=== PATIENT | female | born 1930 | race Caucasian/White ===

== ENCOUNTER 2018-09-17 22:29 | Observation (INO) | payer MEDICARE, OTHER ==
[~2018-09-17] VITALS: Ht 157.5 cm; Wt 62.0 kg
[2018-09-17 22:32] VITALS: Ht 157.5 cm; Wt 62.0 kg
[2018-09-17] MEDS ORDERED: ONDANSETRON 4 MG INJ IV STA (22:34)
[2018-09-17] MEDS ORDERED: morphine 4 MG/ML VIAL IV STA (22:34)
[2018-09-18] VITALS (10 sets, daily range): BP systolic 114–140; BP diastolic 61–68; PULSE 84–111; RESP 18–20
[2018-09-18] MEDS ORDERED: hydrALAzine 20 MG INJ IV ONE
[2018-09-18] MEDS ORDERED: LORAZEPAM 2 MG INJ ONE (00:56)
[2018-09-18] MEDS ORDERED: ONDANSETRON 4 MG INJ IV STA (01:16)
[2018-09-18] MEDS ORDERED: LORAZEPAM 2 MG INJ IV ONE (01:30)
[2018-09-18] MEDS ORDERED: OMEP20CA16 PO (03:11)
[2018-09-18] MEDS ORDERED: LEVO100T8 PO (03:11)
--- NOTE | 2018-09-18 03:24 | ERD ---
ER Documentation Chief Complaint Chief Complaint [id number] from home, epigastric pain,nausea,hx diabetes,HTN HPI This is a very pleasant 88-year-old female comes complains of epigastric abdominal pain and radiating up to her chest for the past 4 hours. Mild associated nausea. No fevers or chills. No other current complaints. Patient has history of diabetes and hypertension. Blood pressures were severely elevated. Patient states compliant with medications but blood pressures remain elevated throughout the course of the day. Chest pain is mild to moderate in intensity with no exacerbating alleviating factors. No other current issues. ROS All systems reviewed and are negative except as per history of present illness. Medications Home Meds Reported Medications Omeprazole* (Omeprazole*) 20 Mg Capsule.dr, 20 MG PO QAM, #30 CAP 09/18/18 Levothyroxine Sodium* (Levothyroxine Sodium*) 100 Mcg Tablet, 100 MCG PO BEFORE BREAKFAST, #30 TAB 09/18/18 Allergies Allergies: Coded Allergies: No Known Allergy (Unverified , 09/17/18) PMhx/Soc Medical and Surgical Hx: pt denies Surgical Hx Hx Alcohol Use: No Hx Substance Use: No Hx Tobacco Use: No Smoking Status: Never smoker Physical Exam Vitals Vital Signs Date Temp Pulse Resp B/P (MAP) Pulse Ox O2 O2 Flow FiO2 Time Delivery Rate 09/18/18 101 16 130/54 94 Room Air 01:30 (79) 09/18/18 99 22 146/73 100 Room Air 01:00 (97) 09/18/18 97.5 90 23 146/63 100 Room Air 00:35 (90) 09/17/18 78 14 169/77 98 Room Air 23:57 (107) 09/17/18 77 15 189/89 94 Room Air 23:42 (122) 09/17/18 79 14 211/90 98 Room Air 23:23 (130) 09/17/18 97.6 87 18 237/110 99 22:32 (152) Physical Exam Const: No acute distress Head: Atraumatic Eyes: Normal Conjunctiva ENT: Normal External Ears, Nose and Mouth. Neck: Full range of motion. No meningismus. Resp: Clear to auscultation bilaterally Cardio: Regular rate and rhythm, no murmurs Abd: Soft, non tender, non distended. Normal bowel sounds Skin: No petechiae or rashes Back: No midline or flank tenderness Ext: No cyanosis, or edema Neur: Awake and alert Psych: Normal Mood and Affect Result Diagram: 09/17/18224209/17/182242 Results 24 hrs Laboratory Tests Test 09/17/18 22:43 09/17/18 22:47 09/18/18 00:48 White Blood Count 9.7 10^3/ul Red Blood Count 4.12 10^6/ul Hemoglobin 11.7 g/dl Hematocrit 36.5 % Mean Corpuscular Volume 88.6 fl Mean Corpuscular Hemoglobin 28.4 pg Mean Corpuscular Hemoglobin Concent 32.1 g/dl Red Cell Distribution Width 13.6 % Platelet Count 295 10^3/UL Mean Platelet Volume 9.8 fl Immature Granulocytes % 0.500 % Neutrophils % 85.1 % Lymphocytes % 10.1 % Monocytes % 3.7 % Eosinophils % 0.3 % Basophils % 0.3 % Nucleated Red Blood Cells % 0.0 /100WBC Immature Granulocytes # 0.050 10^3/ul Neutrophils # 8.2 10^3/ul Lymphocytes # 1.0 10^3/ul Monocytes # 0.4 10^3/ul Eosinophils # 0.0 10^3/ul Basophils # 0.0 10^3/ul Nucleated Red Blood Cells # 0.0 10^3/ul Urine Color COLORLESS Urine Clarity CLEAR Urine pH 7.0 Urine Specific [place] 1.006 Urine Ketones NEGATIVE mg/dL Urine Nitrite NEGATIVE mg/dL Urine Bilirubin NEGATIVE mg/dL Urine Urobilinogen NEGATIVE mg/dL Urine Leukocyte Esterase NEGATIVE Asad/ul Urine Microscopic RBC 1 /HPF Urine Microscopic WBC 1 /HPF Urine Hemoglobin NEGATIVE mg/dL Urine Glucose NEGATIVE mg/dL Urine Total Protein 1+ mg/dl Sodium Level 140 mmol/L Potassium Level 3.6 mmol/L Chloride Level 101 mmol/L Carbon Dioxide Level 29 mmol/L Anion Gap 10 Blood Urea Nitrogen 26 mg/dl Creatinine 1.20 mg/dl Est Glomerular Filtrat Rate mL/min mL/min Glucose Level 73 mg/dl Calcium Level 9.6 mg/dl Total Bilirubin 0.2 mg/dl Direct Bilirubin 0.00 mg/dl Indirect Bilirubin 0.2 mg/dl Aspartate Amino Transf (AST/SGOT) 32 IU/L Alanine Aminotransferase (ALT/SGPT) 21 IU/L Alkaline Phosphatase 75 IU/L Troponin I < 0.012 ng/ml Total Protein 8.1 g/dl Albumin 4.7 g/dl Globulin 3.40 g/dl Albumin/Globulin Ratio 1.38 Lipase 153 U/L Bedside Glucose 81 mg/dL 84 mg/dL Current Medications Medications Dose Sig/Venkat Start Time Status Last (Trade) Ordered Route PRN Stop Time Admin Dose Reason Admin Morphine 4 mg ONCE STAT 09/17/18 DC Sulfate IV 22:34 09/17/18 (morphine) 22:36 Ondansetron 4 mg ONCE STAT 09/17/18 DC 09/17/18 HCl (Zofran IV 22:34 09/17/18 23:23 Inj) 22:36 Hydralazine 20 mg ONCE ONCE 09/18/18 DC 09/17/18 HCl IV 00:00 09/18/18 23:58 (Apresoline) 00:01 Lorazepam 2 mg STK-MED 09/18/18 DC (Ativan) ONCE .ROUTE 00:56 09/18/18 00:57 Lorazepam 1 mg ONCE ONCE 09/18/18 DC 09/18/18 (Ativan) IV 01:30 09/18/18 01:00 01:31 Ondansetron 4 mg ONCE STAT 09/18/18 DC 09/18/18 HCl (Zofran IV 01:16 09/18/18 01:05 Inj) 01:17 Procedures/MDM EKG: Rate/Rhythm: [Normal Sinus Rhythm] QRS, ST, T-waves: [No changes consistent w/ acute ischemia] Impression: [No evidence of ischemia or arrhythmia] Chest X-ray 1V Interpreted by me: Soft Tissue: No acute a bnormalities Bones: No acute abnormalities Mediastinum/Cardiac Silhouette/Lungs: [No acute abnormalities] Medical decision making: Patient's symptoms are concerning for cardiac cause will require inpatient workup and continuous monitoring. Further w/u for ischemia, arrhythmia, PE or dissection will be deferred to the inpatient team. Accepting Care Team: Current data and ongoing care discussed. Time: 1 AM Primary Provider: Hospitalist Consulting: Deferred to inpatient team Outstanding Data: none Departure Diagnosis: Primary Impression: Epigastric pain Additional Impression: Chest pain Chest pain type: unspecified Qualified Codes: R07.9 - Chest pain, unspecified Condition: Serious HUDSON SELLERS September 18, 2018 03:24
[2018-09-18] MEDS ORDERED: ONDANSETRON 4 MG INJ IV PRN ×2 (05:00→06:30)
[2018-09-18] MEDS ORDERED: ALBUTEROL/IPRATROPIUM (NEB) 3 ML AMP HHN PRN (06:30)
[2018-09-18] MEDS ORDERED: NACL 0.9% 3 ML SYG IV SCH (06:30)
[2018-09-18] MEDS ORDERED: SOD CHLORIDE 0.9% 1,000 ML IV SCH (06:30)
[2018-09-18] MEDS ORDERED: ACETAMINOPHEN 325 MG TAB PO PRN (06:30)
[2018-09-18] MEDS: PANTOPRAZOLE (EC) 40 MG TAB PO SCH (08:30)
[2018-09-18] MEDS: LEVOTHYROXINE 100 MCG TAB PO SCH (08:30)
--- NOTE | 2018-09-18 08:44 | HP ---
Date/Time of Note Date/Time of Note DATE: 09/18/18 TIME: 08:38 Assessment/Plan VTE Prophylaxis Risk score (from Ns)>0 risk: 4 SCD applied (from Ns): Yes Pharmacological prophylaxis: heparin Lines/Catheters IV [facility]from [facility] Saline Lock Urinary Cath still in place: No Assessment/Plan Assessment/Plan 1. Abdominal pain with vomiting and diarrhea: Likely gastroenteritis -Bowel rest, with IV fluid -Continue PPI 2. Hypertensive encephalopathy, resolved. Patient reported forgetfulness x1 day. 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 Currently mentation stable. Will consider MRI per clinical course 3. Hypertensive emergency: Currently BP is in acceptable range 4. Type I diabetes: Continue insulin 5. Hypothyroidism: Continue Synthroid Result Diagram: 09/17/183 09/17/18 2243 Results 24hrs Laboratory Tests Test 09/17/18 22:43 09/17/18 22:47 09/18/18 00:48 White Blood Count 9.7 Red Blood Count 4.12 L Hemoglobin 11.7 L Hematocrit 36.5 L Mean Corpuscular Volume 88.6 Mean Corpuscular Hemoglobin 28.4 L Mean Corpuscular Hemoglobin Concent 32.1 Red Cell Distribution Width 13.6 Platelet Count 295 Mean Platelet Volume 9.8 Immature Granulocytes % 0.500 H Neutrophils % 85.1 H Lymphocytes % 10.1 L Monocytes % 3.7 Eosinophils % 0.3 Basophils % 0.3 Nucleated Red Blood Cells % 0.0 Immature Granulocytes # 0.050 H Neutrophils # 8.2 H Lymphocytes # 1.0 Monocytes # 0.4 Eosinophils # 0.0 Basophils # 0.0 Nucleated Red Blood Cells # 0.0 Urine Color COLORLESS Urine Clarity CLEAR Urine pH 7.0 Urine Specific [place] 1.006 Urine Ketones NEGATIVE Urine Nitrite NEGATIVE Urine Bilirubin NEGATIVE Urine Urobilinogen NEGATIVE Urine Leukocyte Esterase NEGATIVE Urine Microscopic RBC 1 Urine Microscopic WBC 1 Urine Hemoglobin NEGATIVE Urine Glucose NEGATIVE Urine Total Protein 1+ H Sodium Level 140 Potassium Level 3.6 Chloride Level 101 Carbon Dioxide Level 29 Anion Gap 10 Blood Urea Nitrogen 26 H Creatinine 1.20 H Est Glomerular Filtrat Rate mL/min Glucose Level 73 Calcium Level 9.6 Total Bilirubin 0.2 Direct Bilirubin 0.00 Indirect Bilirubin 0.2 Aspartate Amino Transf (AST/SGOT) 32 Alanine Aminotransferase (ALT/SGPT) 21 Alkaline Phosphatase 75 Troponin I < 0.012 Total Protein 8.1 Albumin 4.7 Globulin 3.40 H Albumin/Globulin Ratio 1.38 Lipase 153 Bedside Glucose 81 84 HPI/ROS Admit Date/Time Admit Date/Time September 18, 2018 at 01:58 Hx of Present Illness This is an 88-year-old female with a history of hypertension, diabetes, hypothyroidism who presented to ER complaining of abdominal pain associated with multiple nonbloody nonbilious vomiting, forgetfulness x1 day. On further questioning, she thinks the abdominal pain radiates to her chest area. Also reported watery diarrhea, nonbloody. When presented to the ER, vitals were stable. 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 CT abdomen/pelvis shows the following -Diverticulosis, most prominent in the sigmoid colon. No evidence of acute diverticulitis. -Mild stool burden in the ascending colon and cecum. No small bowel obst ruction. -Mild distension of the urinary bladder. No hydronephrosis or urolithiasis identified. -Small hiatal hernia. -Left adrenal nodule, measuring up to 2.1 cm, indeterminate. Recommend dedicate d adrenal CT or MRI to further evaluate. . PMH/Family/Social Past Medical History Medical History: other (See HPI) Medications Current Medications Ondansetron HCl (Zofran Inj) 4 mg Q6H PRN IV NAUSEA AND/OR VOMITING; Start 09/18/18 at 05:00 IV Flush (NS 3 ml) 3 ml PER PROTOCOL IV ; Start 09/18/18 at 06:30 Ondansetron HCl (Zofran Inj) 4 mg Q6H PRN IV NAUSEA/VOMITING; Start 09/18/18 at 06:30 Acetaminophen (Tylenol Tab) 650 mg Q6H PRN PO .PAIN 1-3 OR TEMP; Start 09/18/18 at 06:30 Albuterol/ Ipratropium (Duoneb) 3 ml Q2H RESP THERAPY PRN HHN SHORTNESS OF BREATH; Start 09/18/18 at 06:30 Levothyroxine Sodium (Synthroid) 100 mcg BEFORE BREAKFAST PO Last administered on 09/18/18at 08:30; Admin Dose 100 MCG; Start 09/18/18 at 07:00 Pantoprazole (Protonix Tab) 40 mg DAILY@06 PO Last administered on 09/18/18at 08:30; Admin Dose 40 MG; Start 09/18/18 at 06:00 Sodium Chloride 1,000 ml @ 75 mls/hr [id number] IV Last administered on 09/18/18at 08:30; Admin Dose 75 MLS/HR; Start 09/18/18 at 06:30; Stop 09/19/18 at 11:00 Coded Allergies: No Known Allergy (Unverified , 09/17/18) Past Surgical History Past Surgical Hx: other (See HPI) Family History Significant Family History: no pertinent family hx Social History Alcohol Use: none Smoking Status: Never smoker Drug Use: none Exam/Review of Systems Vital Signs Vitals Vital Signs Date Temp Pulse Resp B/P (MAP) Pulse Ox O2 O2 Flow FiO2 Time Delivery Rate 09/18/18 100 08:32 09/18/18 98.7 20 138/68 97 Room Air 07:18 (91) Intake and Output 09/17/18 09/17/18 09/18/18 1515:00 23:00 07:00 IntakeIntake Total 0 ml OutputOutput Total 0 ml BalanceBalance 0 ml Exam Constitutional: other (No acute distress) Head: normocephalic, atraumatic Eyes: EOMI, PERRL Respiratory: clear to auscultation, normal air movement Cardiovascular: other (Tachycardic regular rhythm) Gastrointestinal: soft, other (Slight tenderness in the epigastric area. No guarding. No rebound tenderness) Extremities: normal pulses Neurological: nl mental status, nl speech, nl strength HUDSON OLEA MD September 18, 2018 08:44
[2018-09-18] MEDS ORDERED: GLUCAGON 1 MG INJ IM PRN (09:00)
[2018-09-18] MEDS ORDERED: GLUCOSE GEL 15 GRAM TUBE PO PRN ×2 (09:00)
[2018-09-18] MEDS ORDERED: DEXTROSE 50% 50 ML SYRINGE IV PRN ×2 (09:00)
[2018-09-18] MEDS ORDERED: GLUCOSE GEL 15 GRAM TUBE BUCCAL PRN (09:00)
[2018-09-18] MEDS: INSULIN ASPART [NOVOLOG] 3 ML PEN SC SCH ×3 (11:37→20:54)
--- NOTE | 2018-09-18 14:40 | PN ---
Date/Time of Note Date/Time of Note DATE: 09/18/18 TIME: 14:27 Assessment/Plan VTE Prophylaxis Risk score (from Ns)>0 risk: 4 SCD applied (from Ns): Yes Pharmacological prophylaxis: heparin Lines/Catheters IV Catheter Type (from Nrs): Saline Lock Urinary Cath still in place: No Assessment/Plan Assessment/Plan 1. Hypertensive emergency, improved, lisinopril 2. Abdominal pain and vomiting, improved, on protonix 3. Dehydration from vomiting, IVF 4. Type I diabetes: metformin, ISS, HbA1c 5. Hypothyroidism: Continue Synthroid 6. DVT prophylaxis: heparin Result Diagram: 09/17/18224209/17/183 Results 24hrs Laboratory Tests Test 09/17/18 22:43 09/17/18 22:47 09/18/18 00:48 09/18/18 11:34 White Blood Count 9.7 Red Blood Count 4.12 L Hemoglobin 11.7 L Hematocrit 36.5 L Mean Corpuscular Volume 88.6 Mean Corpuscular 28.4 L Hemoglobin Mean Corpuscular 32.1 Hemoglobin Concent Red Cell Distribution 13.6 Width Platelet Count 295 Mean Platelet Volume 9.8 Immature Granulocytes % 0.500 H Neutrophils % 85.1 H Lymphocytes % 10.1 L Monocytes % 3.7 Eosinophils % 0.3 Basophils % 0.3 Nucleated Red Blood 0.0 Cells % Immature Granulocytes # 0.050 H Neutrophils # 8.2 H Lymphocytes # 1.0 Monocytes # 0.4 Eosinophils # 0.0 Basophils # 0.0 Nucleated Red Blood 0.0 Cells # Urine Color COLORLESS Urine Clarity CLEAR Urine pH 7.0 Urine Specific [place] 1.006 Urine Ketones NEGATIVE Urine Nitrite NEGATIVE Urine Bilirubin NEGATIVE Urine Urobilinogen NEGATIVE Urine Leukocyte Esterase NEGATIVE Urine Microscopic RBC 1 Urine Microscopic WBC 1 Urine Hemoglobin NEGATIVE Urine Glucose NEGATIVE Urine Total Protein 1+ H Sodium Level 140 Potassium Level 3.6 Chloride Level 101 Carbon Dioxide Level 29 Anion Gap 10 Blood Urea Nitrogen 26 H Creatinine 1.20 H Est Glomerular Filtrat Rate mL/min Glucose Level 73 Calcium Level 9.6 Total Bilirubin 0.2 Direct Bilirubin 0.00 Indirect Bilirubin 0.2 Aspartate Amino 32 Transf (AST/SGOT) Alanine 21 Aminotransferase (ALT/SG PT) Alkaline Phosphatase 75 Troponin I < 0.012 Total Protein 8.1 Albumin 4.7 Globulin 3.40 H Albumin/Globulin Ratio 1.38 Lipase 153 Bedside Glucose 81 84 338 H Subjective 24 Hr Interval Summary Free Text/Dictation no nausea or vomiting, no abdominal pain Exam/Review of Systems Exam Vitals Vital Signs Date Temp Pulse Resp B/P (MAP) Pulse Ox O2 O2 Flow FiO2 Time Delivery Rate 09/18/18 97 12:53 09/18/18 99.3 20 140/66 97 Room Air 10:57 (90) Intake and Output 09/17/18 09/17/18 09/18/18 1515:00 23:00 07:00 IntakeIntake Total 0 ml OutputOutput Total 0 ml BalanceBalance 0 ml Constitutional: alert, oriented Psych: no complaints, nl mood/affect Head: normocephalic, atraumatic Eyes: nl conjunctiva, EOMI, nl lids, PERRL ENMT: nl external ears & nose, nl lips & teeth, nl nasal mucosa & septum Neck: supple, non-tender Respiratory: clear to auscultation, normal air movement; No congested cough, No crackles/rales, No diminished breath sounds, No intercostal retraction, No labored breathing, No respirations, No tactile fremitus, No wheezing, No other Cardiovascular: regular rate and rhythm, nl pulses; No bruits, No diastolic murmur, No edema, No gallop, No irregular rhythm, No jugular venous distention (JVD), No murmurs/extra sounds, No rub, No systolic murmur, No S3, No S4, No other Gastrointestinal: soft, nl liver, spleen, other (epigastric tenderness) Musculoskeletal: nl extremities to inspection Extremities: normal pulses; No calf tenderness, No cyanosis, No clubbing, No edema, No pitting pedal edema, No palpable cord, No tenderness, No other Neurological: COOK CANDY II-XII intact, nl mental status, nl speech, nl strength Results Results 24hrs Laboratory Tests Test 09/17/18 22:43 09/17/18 22:47 09/18/18 00:48 09/18/18 11:34 White Blood Count 9.7 Red Blood Count 4.12 L Hemoglobin 11.7 L Hematocrit 36.5 L Mean Corpuscular Volume 88.6 Mean Corpuscular 28.4 L Hemoglobin Mean Corpuscular 32.1 Hemoglobin Concent Red Cell Distribution 13.6 Width Platelet Count 295 Mean Platelet Volume 9.8 Immature Granulocytes % 0.500 H Neutrophils % 85.1 H Lymphocytes % 10.1 L Monocytes % 3.7 Eosinophils % 0.3 Basophils % 0.3 Nucleated Red Blood 0.0 Cells % Immature Granulocytes # 0.050 H Neutrophils # 8.2 H Lymphocytes # 1.0 Monocytes # 0.4 Eosinophils # 0.0 Basophils # 0.0 Nucleated Red Blood 0.0 Cells # Urine Color COLORLESS Urine Clarity CLEAR Urine pH 7.0 Urine Specific [place] 1.006 Urine Ketones NEGATIVE Urine Nitrite NEGATIVE Urine Bilirubin NEGATIVE Urine Urobilinogen NEGATIVE Urine Leukocyte Esterase NEGATIVE Urine Microscopic RBC 1 Urine Microscopic WBC 1 Urine Hemoglobin NEGATIVE Urine Glucose NEGATIVE Urine Total Protein 1+ H Sodium Level 140 Potassium Level 3.6 Chloride Level 101 Carbon Dioxide Level 29 Anion Gap 10 Blood Urea Nitrogen 26 H Creatinine 1.20 H Est Glomerular Filtrat Rate mL/min Glucose Level 73 Calcium Level 9.6 Total Bilirubin 0.2 Direct Bilirubin 0.00 Indirect Bilirubin 0.2 Aspartate Amino 32 Transf (AST/SGOT) Alanine 21 Aminotransferase (ALT/SG PT) Alkaline Phosphatase 75 Troponin I < 0.012 Total Protein 8.1 Albumin 4.7 Globulin 3.40 H Albumin/Globulin Ratio 1.38 Lipase 153 Bedside Glucose 81 84 338 H Medications Medication Current Medications Ondansetron HCl (Zofran Inj) 4 mg Q6H PRN IV NAUSEA AND/OR VOMITING; Start 09/18/18 at 05:00 IV Flush (NS 3 ml) 3 ml PER PROTOCOL IV ; Start 09/18/18 at 06:30 Ondansetron HCl (Zofran Inj) 4 mg Q6H PRN IV NAUSEA/VOMITING; Start 09/18/18 at 06:30 Acetaminophen (Tylenol Tab) 650 mg Q6H PRN PO .PAIN 1-3 OR TEMP; Start 09/18/18 at 06:30 Albuterol/ Ipratropium (Duoneb) 3 ml Q2H RESP THERAPY PRN HHN SHORTNESS OF B REATH; Start 09/18/18 at 06:30 Levothyroxine Sodium (Synthroid) 100 mcg BEFORE BREAKFAST PO Last administered on 09/18/18at 08:30; Admin Dose 100 MCG; Start 09/18/18 at 07:00 Pantoprazole (Protonix Tab) 40 mg DAILY@06 PO Last administered on 09/18/18at 08:30; Admin Dose 40 MG; Start 09/18/18 at 06:00 Sodium Chloride 1,000 ml @ 75 mls/hr [id number] IV Last administered on 09/18/18at 08:30; Admin Dose 75 MLS/HR; Start 09/18/18 at 06:30; Stop 09/19/18 at 11:00 Diagnostic Test (Pha) (Accu-Chek) 1 ea 02 XX ; Start 09/19/18 at 02:00 Insulin Aspart (Novolog Insulin Pen) NOVOLOG *MILD* ALGORITHM WITH MEALS BED TIME SC Last administered on 09/18/18at 11:37; Admin Dose 5 UNIT; Start 09/18/18 at 11:50 Miscellaneous Information 1 ea NOTE XX ; Start 09/18/18 at 09:00 Glucose (Glutose) 15 gm Q15M PRN PO DECREASED GLUCOSE; Start 09/18/18 at 09:00 Glucose (Glutose) 22.5 gm Q15M PRN PO DECREASED GLUCOSE; Start 09/18/18 at 09:00 Dextrose (D50w Syringe) 25 ml Q15M PRN IV DECREASED GLUCOSE; Start 09/18/18 at 09:00 Dextrose (D50w Syringe) 50 ml Q15M PRN IV DECREASED GLUCOSE; Start 09/18/18 at 09:00 Glucagon (Glucagen) 1 mg Q15M PRN IM DECREASED GLUCOSE; Start 09/18/18 at 09:00 Glucose (Glutose) 15 gm Q15M PRN BUCCAL DECREASED GLUCOSE; Start 09/18/18 at 09:00 OSMAR MOREAU MD September 18, 2018 14:38
[2018-09-18] MEDS ORDERED: INSU100I27 SQ (15:57)
[2018-09-18] MEDS: POTASSIUM CHLORIDE 10 MEQ in SOD CHLORIDE 0.45% 1,000 ML IV SCH (16:10)
[2018-09-18] MEDS: LISINOPRIL 10 MG TAB PO SCH (16:10)
[2018-09-18] MEDS: ACETAMINOPHEN 325 MG TAB PO PRN (17:13)
[2018-09-18] MEDS: metFORMIN 500 MG TAB PO SCH (17:15)
[2018-09-18] MEDS: INSULIN GLARGINE [LANTus] (100 UNITS/ML) SYG SC SCH (21:00)
[2018-09-19] VITALS (12 sets, daily range): BP systolic 131–178; BP diastolic 53–83; PULSE 65–90; RESP 17–20
[2018-09-19] MEDS: ACCU-CHEK XX SCH (02:44)
[2018-09-19] MEDS: LEVOTHYROXINE 100 MCG TAB PO SCH (06:12)
[2018-09-19] MEDS: PANTOPRAZOLE (EC) 40 MG TAB PO SCH (06:12)
[2018-09-19] MEDS: POTASSIUM CHLORIDE 10 MEQ in SOD CHLORIDE 0.45% 1,000 ML IV SCH ×2 (06:12→18:48)
[2018-09-19] MEDS: ACETAMINOPHEN 325 MG TAB PO PRN (06:21)
[2018-09-19] MEDS: INSULIN ASPART [NOVOLOG] 3 ML PEN SC SCH ×4 (08:02→21:00)
[2018-09-19] MEDS: metFORMIN 500 MG TAB PO SCH ×2 (08:06→17:41)
[2018-09-19] MEDS: LISINOPRIL 10 MG TAB PO SCH (08:06)
[2018-09-19] MEDS: INSULIN GLARGINE [LANTus] (100 UNITS/ML) SYG SC SCH ×2 (08:14→21:23)
[2018-09-19] MEDS ORDERED: METF-849 PO (14:11)
[2018-09-19] MEDS ORDERED: LISI10TA2 PO (14:11)
--- NOTE | 2018-09-19 14:17 | DS ---
Date/Time of Note Date/Time of Note DATE: 09/19/18 TIME: 14:12 Discharge Summary Admission/Discharge Info Admit Date/Time September 18, 2018 at 01:58 Discharge Date/Time Discharge Diagnosis 1. Acute gastroenteritis, resolved 2. Hypertensive emergency, improved, on lisinopril, follow up with PCP 3. Dehydration from vomiting, resolved 4. Type I diabetes: metformin and lantus 5. Hypothyroidism: Continue Synthroid 6. Left adrenal nodule, measuring up to 2.1 cm, repeat CT scan in 3 months Patient Condition: Stable Hospital Course This is an 88-year-old female with a history of hypertension, diabetes, hypoth yroidism who presented to ER complaining of abdominal pain associated with multiple nonbloody nonbilious vomiting, forgetfulness x1 day. On further questioning, she thinks the abdominal pain radiates to her chest area. Also reported watery diarrhea, nonbloody. When presented to the ER, vitals were stable. 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 CT abdomen/pelvis shows the following -Diverticulosis, most prominent in the sigmoid colon. No evidence of acute diverticulitis. -Mild stool burden in the ascending colon and cecum. No small bowel obstruction. -Mild distension of the urinary bladder. No hydronephrosis or urolithiasis identified. -Small hiatal hernia. -Left adrenal nodule, measuring up to 2.1 cm, indeterminate. Recommend dedicated adrenal CT or MRI to further evaluate. . Patient is treated with IVF, protonix for acute gastroenteritis, symptoms resolved. No abdominal pain, no nausea or vomiting, no diarrhea today. I will continue her on prilosec. BP was 237/110 on arrival to ER, blood pressure is better controlled with lisinopril. Antihypertensives will be adjusted per PCP. CT scan revealed Left adrenal nodule, measuring up to 2.1 cm, repeat CT scan in 3 months with PCP. Home Meds Active Scripts Lisinopril* (Lisinopril*) 10 Mg Tablet, 20 MG PO DAILY for 30 Days, TAB Prov:OSMAR MOREAU MD 09/19/18 Reported Medications Insulin Detemir (Levemir Flextouch) 100 Unit/1 Ml Insuln.pen, 20 UNIT SQ BID, EA 09/18/18 Omeprazole* (Omeprazole*) 20 Mg Capsule.dr, 20 MG PO QAM, #30 CAP 09/18/18 Levothyroxine Sodium* (Levothyroxine Sodium*) 100 Mcg Tablet, 100 MCG PO BEFORE BREAKFAST, #30 TAB 09/18/18 Follow-up Plan PCP in one week PCP to repeat CT abdomen/pelvis for left adrenal lesion in 3 months Primary Care Provider Care Physician No Primary Pending Labs Laboratory Tests Test 09/18/18 17:12 09/18/18 20:44 09/19/18 02:42 09/19/18 07:51 Bedside 240 237 172 Glucose mg/dL (70-220) mg/dL (70-220) mg/dL (70-220) White Blood 7.8 Count 10^3/ul (4.8-1 0.8) Red Blood 3.69 Count 10^6/ul (4.20- 5.40) Hemoglobin 10.7 g/dl (12.0-16. 0) Hematocrit 33.4 % (37.0-47.0) Mean 90.5 Corpuscular fl (82.0-101.0 Volume ) Mean 29.0 Corpuscular pg (29.0-33.0) Hemoglobin Mean 32.0 Corpuscular g/dl (32.0-37. Hemoglobin Conc 0) ent Red Cell 14.0 Distribution % (11.5-14.5) Width Platelet Count 313 10^3/UL (140-4 15) Mean Platelet 10.2 Volume fl (7.4-10.4) Immature 0.500 Granulocytes % % (0.001-0.429 ) Neutrophils % 63.3 % (39.0-77.0) Lymphocytes % 25.9 % (15.0-51.0) Monocytes % 7.7 % (0.0-11.0) Eosinophils % 2.1 % (0.0-7.0) Basophils % 0.5 % (0.0-2.0) Nucleated Red 0.0 Blood Cells % /100WBC (0.0-0 .0) Immature 0.040 Granulocytes # 10^3/ul (0.0-0 .031) Neutrophils # 4.9 10^3/ul (1.6-7 .5) Lymphocytes # 2.0 10^3/ul (0.8-2 .9) Monocytes # 0.6 10^3/ul (0.3-0 .9) Eosinophils # 0.2 10^3/ul (0.0-0 .5) Basophils # 0.0 10^3/ul (0.0-0 .1) Nucleated Red 0.0 Blood Cells # 10^3/ul (0.0-0 .0) Sodium Level 137 mmol/L (135-14 4) Potassium 5.0 Level mmol/L (3.5-5. 1) Chloride Level 102 mmol/L (97-110 ) Carbon Dioxide 28 Level mmol/L (21-31) Anion Gap 7 (5-13) Blood Urea 26 Nitrogen mg/dl (7-20) Creatinine 1.21 mg/dl (0.44-1. 00) Est Glomerular mL/min (>60) Filtrat Rate mL/min Glucose Level 246 mg/dl (70-220) Hemoglobin A1c 7.7 % (0-5.9) Calcium Level 8.8 mg/dl (8.4-10. 2) Magnesium 1.7 Level mg/dl (1.7-2.5 ) Total 0.5 Bilirubin mg/dl (0.2-1.3 ) Direct 0.00 Bilirubin mg/dl (0.00-0. 20) Indirect 0.5 Bilirubin mg/dl (0-1.1) Aspartate Amino 24 Transf (AST/SGO IU/L (15-46) T) Alanine 13 Aminotransferas IU/L (13-69) e (ALT/SGPT) Alkaline 51 Phosphatase IU/L (42-121) Total Protein 6.4 g/dl (6.1-8.1) Albumin 3.6 g/dl (3.3-4.9) Globulin 2.80 g/dl (1.3-3.2) Albumin/Globuli 1.28 n Ratio Test 09/19/18 08:00 09/19/18 12:16 Bedside 224 139 Glucose mg/dL (70-220) mg/dL (70-220) OSMAR MOREAU MD September 19, 2018 14:17
[2018-09-19] MEDS ORDERED: LISINOPRIL 20 MG TAB PO SCH (14:30)
[2018-09-19] MEDS ORDERED: LISINOPRIL 20 MG TAB PO ONE (19:30)
[2018-09-20] VITALS (12 sets, daily range): BP systolic 134–187; BP diastolic 66–90; PULSE 66–76; RESP 17–20
[2018-09-20] MEDS: POTASSIUM CHLORIDE 10 MEQ in SOD CHLORIDE 0.45% 1,000 ML IV SCH ×2 (00:53→08:12)
[2018-09-20] MEDS: ACCU-CHEK XX SCH (02:00)
[2018-09-20] MEDS: LEVOTHYROXINE 100 MCG TAB PO SCH (06:06)
[2018-09-20] MEDS: PANTOPRAZOLE (EC) 40 MG TAB PO SCH (06:06)
[2018-09-20] MEDS: INSULIN ASPART [NOVOLOG] 3 ML PEN SC SCH ×3 (07:55→16:59)
[2018-09-20] MEDS: metFORMIN 500 MG TAB PO SCH ×2 (08:20→17:00)
[2018-09-20] MEDS: INSULIN GLARGINE [LANTus] (100 UNITS/ML) SYG SC SCH (08:23)
[2018-09-20] MEDS ORDERED: LISINOPRIL 10 MG TAB PO SCH (09:00)
[2018-09-20] MEDS ORDERED: LISINOPRIL 20 MG TAB PO SCH (09:00)
--- NOTE | 2018-09-20 14:25 | DS ---
Date/Time of Note Date/Time of Note DATE: 09/20/18 TIME: 14:23 Discharge Summary Admission/Discharge Info Admit Date/Time September 18, 2018 at 01:58 Discharge Date/Time Discharge Diagnosis 1. Acute gastroenteritis, resolved 2. Hypertensive emergency, improved, on lisinopril, follow up with PCP 3. Dehydration from vomiting, resolved 4. Type I diabetes: metformin and lantus 5. Hypothyroidism: Continue Synthroid 6. Left adrenal nodule, measuring up to 2.1 cm, repeat CT scan in 3 months, endocrinology Patient Condition: Stable Hospital Course This is an 88-year-old female with a history of hypertension, diabetes, hypothyroidism who presented to ER complaining of abdominal pain associated with multiple nonbloody nonbilious vomiting, forgetfulness x1 day. On further questioning, she thinks the abdominal pain radiates to her chest area. Also reported watery diarrhea, nonbloody. When presented to the ER, vitals were stable. 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 CT abdomen/pelvis shows the following -Diverticulosis, most prominent in the sigmoid colon. No evidence of acute diverticulitis. -Mild stool burden in the ascending colon and cecum. No small bowel obstruction. -Mild distension of the urinary bladder. No hydronephrosis or urolithiasis identified. -Small hiatal hernia. -Left adrenal nodule, measuring up to 2.1 cm, indeterminate. Recommend dedicated adrenal CT or MRI to further evaluate. . Patient is treated with IVF, protonix for acute gastroenteritis, symptoms resolved. No abdominal pain, no nausea or vomiting, no diarrhea today. I will continue her on prilosec. BP was 237/110 on arrival to ER, blood pressure is better controlled with lisinopril. Antihypertensives will be adjusted per PCP. CT scan revealed Left adrenal nodule, measuring up to 2.1 cm, repeat CT scan in 3 months with PCP. Patient will need to go to see an director of exhibit development for adrenal nodule and intermittent high blood pressure.. Home Meds Active Scripts Lisinopril* (Lisinopril*) 10 Mg Tablet, 20 MG PO DAILY for 30 Days, TAB Prov:OSMAR MOREAU MD 09/19/18 Reported Medications Insulin Detemir (Levemir Flextouch) 100 Unit/1 Ml Insuln.pen, 20 UNIT SQ BID, EA 09/18/18 Omeprazole* (Omeprazole*) 20 Mg Capsule., 20 MG PO QAM, #30 CAP 09/18/18 Levothyroxine Sodium* (Levothyroxine Sodium*) 100 Mcg Tablet, 100 MCG PO BEFORE BREAKFAST, #30 TAB 09/18/18 Follow-up Plan PCP in one week PCP to repeat CT abdomen/pelvis for left adrenal lesion in 3 months endocrinology in on e week Primary Care Provider Care Physician No Primary Pending Labs Laboratory Tests Test 09/19/18 17:40 09/19/18 21:16 09/20/18 03:02 09/20/18 08:18 Bedside 132 125 81 76 Glucose mg/dL (70-220) mg/dL (70-220) mg/dL (70-220) mg/dL (70-220) Test 09/20/18 11:43 Bedside 103 Glucose mg/dL (70-220) OSMAR MOREAU MD September 20, 2018 14:25
[2018-09-20] MEDS ORDERED: LISI40TA3 PO (14:26)
[2018-09-20] MEDS ORDERED: BISACODYL (EC) 5 MG TAB PO ONE (14:30)
[2018-09-20] MEDS ORDERED: ALPRAZOLAM 0.25 MG TAB PO ONE (15:30)
== END 2018-09-20 19:22 | disposition home or self-care (01) ==
LOC: E/R 22:29 → TEL 09-18 01:58
PROVIDERS: ADMIT Internal Medicine; ATTEND Internal Medicine
DX: K52.9 Noninfective gastroenteritis and colitis, unspecified (principal); I16.1 Hypertensive emergency; I10 Essential (primary) hypertension; E86.0 Dehydration; E10.9 Type 1 diabetes mellitus without complications; Z79.4 Long term (current) use of insulin; E03.9 Hypothyroidism, unspecified; E27.9 Disorder of adrenal gland, unspecified
CPT/HCPCS: 36415; 70450; 71045; 74176; 80053; 81001; 82962; 83036; 83690; 83735; 84484; 85025; 93005; 96374; 96375; 96376; 99285; G0378; J0360; J1815; J2060; J2405; J3480; J7030; J2270